=== PATIENT | female | born 1960 | race Caucasian/White ===

== ENCOUNTER → 2024-06-02 13:51 | Outpatient (REF) | payer BC, SELFPAY | LOC: WDC 13:51 | PROVIDERS: ATTENDING PHYSICIAN Nurse Practitioner Family | DX: E04.1 Nontoxic single thyroid nodule (principal); Z12.31 Encounter for screening mammogram for malignant neoplasm of breast | CPT/HCPCS: 76536; 77063; 77067 ==

== ENCOUNTER → 2024-12-30 11:21 | Outpatient (REF) | payer OTHER, SELFPAY | LOC: WDC 11:21 | PROVIDERS: ATTENDING PHYSICIAN Nurse Practitioner Family | DX: R92.343 Mammographic extreme density, bilateral breasts (principal) | CPT/HCPCS: 76641 ==